=== PATIENT | male | born 1940 | race Two or more races ===

== ENCOUNTER 2023-06-30 11:13 | Emergency (ER) | payer OTHER ==
[~2023-06-30] VITALS: Ht 167.6 cm; Wt 76.6 kg
[2023-06-30 11:51] VITALS: BP 151/76; PULSE 68; RESP 18; TEMP 97.8; O2SAT 95
[2023-06-30] MEDS ORDERED: HYDROcodone-ACET 5/325MG TAB PO ONE (13:30)
[2023-06-30] MEDS ORDERED: TRAM50TA2 PO ×2 (13:35→13:36)
== END 2023-06-30 13:45 | disposition home or self-care (01) ==
LOC: ER 11:13
DX: S76.011A Strain of muscle, fascia and tendon of right hip, initial encounter (principal); M25.561 Pain in right knee; M51.36 Other intervertebral disc degeneration, lumbar region; M62.830 Muscle spasm of back; E78.5 Hyperlipidemia, unspecified
CPT/HCPCS: 72131; 73502; 73562